=== PATIENT | female | born 1930 | race Caucasian/White ===

== ENCOUNTER 2016-05-31 10:18 | Emergency (ER) | payer OTHER ==
--- NOTE | 2016-05-31 12:14 | ER PHYSICIAN DOCUMENTATION ---
Physician Documentation [facility] Name:Ashli Mcdaniel Age:85 yrs Sex:Female :1930 Arrival Date:05/31/2016 Time:10:18 Bed6 Private MD:Олег Cordero ED, Tom Disposition: 05/31 16:00 Chart complete. tl1 Disposition: 05/31/16 11:58 Discharged to Home/Self Care. Impression: Wrist Sprain. - Condition is Good. - Discharge Instructions: WRIST SPRAIN, WRIST SPLINT, Velcro. - Medical Reconciliation form form. - Follow up: Esau Ramirez DO, Cj Santizo MD; When: Tomorrow; Reason: Recheck today's complaints, Continuance of care. - Problem is new. - Symptoms are unchanged. - Notes: OK TO TAKE IBUPROFEN 1-2 200 mg TABS EVERY 8 HOURS NEEDED FOR PAIN . YOU CAN TAKE THIS ALONG WITH YOUR USUAL DOSES OF ULTRAM. HPI: 10:28 This 85 yrs old Female presents to ER with complaints of Wrist Injury - Left. tl1 10:28 The patient or guardian reports injury. The complaints affect the left wrist diffusely. tl1 3 days ago she opened a jar, twisting with her left hand. She had no pain initially but 2 hours later her wrist began hurting and has been more painful ever since. She denies any other injury. No h/o fever or malignancy. No redness.. Historical: - Allergies: Multiple statins; Mutiple antibiotics; PENICILLINS; - Home Meds: 1. Tramadol Oral - PMHx: Tendonitis to bilat shoulder; - PSHx: HYSTERECTOMY; CHOLECYSECTOMY; - Tetanus: < 10 years. - Ebola Screening: : No symptoms or risks identified at this time. . - Immunization history: Flu Vaccine < 1 year. - Social history: Smoking status: Patient states was never smoker of tobacco. Patient uses alcohol but reports only rare drinking. ROS: 10:40 MS/extremity: Positive for decreased range of motion, pain, swelling, tenderness, tl1 Negative for deformity, ecchymosis, warmth. 10:40 All other systems are negative. Exam: 10:40 Hand exam: is negative for ecchymosis, erythema, Exam is positive for decreased range tl1 of motion, edema, snuff box/scaphoid tenderness, tenderness, ROM: limited active range of motion, limited passive range of motion, Perfusion: the extremity is normally perfused throughout, sensation intact. Joints: All joints are normal except the left wrist displays pain at rest, painful range of motion, swelling, tenderness. Vital Signs: 10:40 BP 145 / 90; Pulse 101; Resp 18; Temp 98.0; Pulse Ox 93% on R/A; Weight 50.8 kg; Height ma 5 ft. 0 in. (152.40 cm); Pain 8/10; 10:40 Body Mass Index 21.87 (50.80 kg, 152.40 cm) ma Procedures: 16:00 Splinting: Splint applied to left wrist using Scotchcast applied by nurse. Examined by tl1 me, post splint application: neurovascular intact, Patient tolerated well. MDM: 10:28 Patient medically screened. tl1 06/01 11:30 Differential diagnosis: tendonitis, sprain. Doubt infection. Data reviewed: vital tl1 signs, nurses notes, radiologic studies, plain films, and as a result, I will admit patient. Counseling: I had a detailed discussion with the patient and/or guardian regarding: the historical points, exam findings, and any diagnostic results supporting the discharge/admit diagnosis, radiology results, the need for outpatient follow up. Physician consultation: MD Esau Preciado DO was called at 11:30, was contacted at 11:30, regarding patient's condition, outpatient follow-up, and will see patient in office, tomorrow. 11:30 Special discussion: Based on the history and exam findings, there is no indication for tl1 further emergent testing or inpatient evaluation. I discussed with the patient/guardian the need to see the orthopedic surgeon for further evaluation of the symptoms. ED course: splinted. Dispensed Medications: No medications were administered Signatures: Radha Blair RN RN ma Leigh, Tom, MD MD tl1
--- NOTE | 2016-05-31 12:14 | ER NURSING DOCUMENTATION ---
Nurse's Notes [facility] Name:Ashli Mcdaniel Age:85 yrs Sex:Female :1930 Arrival Date:05/31/2016 Time:10:18 Bed6 Private MD:Олег Cordero Diagnosis:Wrist Sprain Presentation: 05/31 10:35 Presenting complaint: Patient states: Pt states she had difficulty opening a pasta jar ma 3 nights ago States did not have immediate pain, but that evening has developed left wrist pain with swelling to wrist and hand. Transition of care: Home. 10:35 Acuity: JETT 4 ma 10:35 Method Of Arrival: Private Vehicle ma Triage Assessment: 10:39 General: Appears in no apparent distress, well developed, well nourished, Behavior is ma cooperative, pleasant. Pain: Complains of pain in left wrist. Musculoskeletal: Swelling present in left wrist and left hand. Injury Description: No specific trauma. Historical: - Allergies: Multiple statins; Mutiple antibiotics; PENICILLINS; - Home Meds: 1. Tramadol Oral - PMHx: Tendonitis to bilat shoulder; - PSHx: HYSTERECTOMY; CHOLECYSECTOMY; - Tetanus: < 10 years. - Ebola Screening: : No symptoms or risks identified at this time. . - Immunization history: Flu Vaccine < 1 year. - Social history: Smoking status: Patient states was never smoker of tobacco. Patient uses alcohol but reports only rare drinking. Screenin:41 Infectious Disease Risk None. Abuse screen: Denies threats or abuse. Nutritional ma screening: No deficits noted. Assessment: 10:41 Reassessment: Pt offered pain medication by wandy Domínguez at this time. ma Vital Signs: 10:40 BP 145 / 90; Pulse 101; Resp 18; Temp 98.0; Pulse Ox 93% on R/A; Weight 50.8 kg; Height ma 5 ft. 0 in. (152.40 cm); Pain 8/10; 10:40 Body Mass Index 21.87 (50.80 kg, 152.40 cm) ma ED Course: 10:22 Patient arrived in ED. lm3 10:22 Олег Cordero MD is Private Physician. lm3 10:24 Mike Vargas MD is Attending Physician. tl1 10:35 Abuso, Radha, RN is Primary Nurse. ma 10:37 Triage completed. ma 10:41 Valuables Remains with patient Patient has correct armband on for positive ma identification. Bed in low position. Call light in reach. Ice pack to injury. 10:57 Port Xray Completed. ms 11:56 Velcro wrist splint applied to left wrist. ma 11:57 Esau Ramirez DO, Cj Santizo MD is Referral Physician. tl1 Administered Medications: No medications were administered Outcome: 11:58 Discharge ordered by MD. tl1 12:13 Discharged to home ma 12:13 Condition: stable 12:13 Discharge instructions given to patient, Instructed on discharge instructions, follow up and referral plans. [facility] Demonstrated understanding of instructions. 12:13 Patient left the ED. ma Signatures: Radha Blair RN RN Ania Reynaga ms, Tom, MD MD tl1 Caty Montgomery
--- NOTE | 2016-06-01 13:54 | RADIOLOGY REPORT ---
Four views of the left wrist demonstrate an 8 mm lytic lesion involving the ulnar aspect of the triquetrum. No fracture or dislocation is identified. Peritrapezial degenerative joint disease is noted. IMPRESSION: Apparent lytic lesion involving the triquetrum. The finding raises concern for possible metastatic lesion. Further evaluation with bone scanning and/or MRI scanning may be of benefit. MTDD
== END 2016-05-31 12:14 | disposition home or self-care (01) ==
LOC: ER 10:18
DX: S63.502A Unspecified sprain of left wrist, initial encounter (principal); X50.0XXA Overexertion from strenuous movement or load, initial encounter
CPT/HCPCS: 29125; 99283